=== PATIENT | female | born 1975 | race Hispanic/Latino ===

== ENCOUNTER 2017-07-17 01:52 | Emergency (ER) | payer OTHER ==
[~2017-07-17] VITALS: Ht 157.5 cm; Wt 81.8 kg
[~2017-07-17 01:52] MED LIST: AUGMENTIN875 MG PO; CONCEPT DHA PO; FLONASE NASAL50 MCG; IRON325 MG OR; LOESTRIN 24 PO; MEDROL4 M1 OR; MIRALAX3350 NF PO; MUCINEX600 MG PO; MULT VITAMI1 PO; NAPROSYN500 MG OR; NAPROXEN500 MG PO; NO HOME MEDS; PREVACID30 M1 OR; ZOFRAN ODT4 MG OR
[2017-07-17 02:54] LABS: IMMATURE GRANULOCYTES 0.3 % (0.0-1.0); MEAN CORPUSCULAR HGB 27.3 pG CALC (26.0-32.0); MEAN CORPUSCULAR HGB CONC 32.6 g/L CALC (32.0-36.0); NEUT# 4.77 thou/uL (2.00-7.15); RED BLOOD COUNT 4.39 mill/uL (4.20-5.60); RED CELL DISTRI WIDTH 14.8 % (11.5-15.5)
[2017-07-17 02:57] LABS: HEMATOCRIT 36.8 % (37.0-47.0); MEAN CELL VOLUME 83.8 fL CALC (80.0-100.0)
[2017-07-17 03:05] LABS: ALKALINE PHOSPHATASE 93 u/l (38-126); ANION GAP 16 (6-22 (CALC)); BILIRUBIN, TOTAL 0.2 mg/dL (0.0-1.4); BUN 7 mg/dL (7-17); BUN/CREATININE RATIO 11 (12-20 (CALC)); CARBON DIOXIDE 23 mmol/l (22-30); CHLORIDE 104 mmol/l (95-108); CREATININE 0.6 mg/dL (0.5-1.0); GFR > 60 ML/MIN (>=60 (CALC)); GFR FOR AFR.AMER. > 60 ML/MIN (>=60 (CALC)); LIPASE 132 u/l (23-300); POTASSIUM 3.5 mmol/l (3.5-5.1); SGPT/ALT 45 u/l (9-52); SODIUM 140 mmol/l (137-146); TOTAL PROTEIN 6.7 g/dL (6.3-8.2)
[2017-07-17 03:07] LABS: SGOT/AST 45 u/l (14-36)
[2017-07-17 03:27] VITALS: BP 120/64
== END 2017-07-17 03:25 | disposition home or self-care (01) | DRG 392 ==
LOC: ED 01:52
PROVIDERS: Emergency Medicine
DX: R10.13 Epigastric pain (principal); R11.0 Nausea